=== PATIENT | female | born 1985 | race Caucasian/White ===

== ENCOUNTER 2018-06-09 14:37 | Emergency (ER) | payer OTHER ==
[~2018-06-09] VITALS: Ht 177.8 cm; Wt 96.9 kg
[2018-06-09 14:40] VITALS: Ht 177.8 cm; Wt 96.9 kg
--- NOTE | 2018-06-09 19:21 | ERD ---
ER Documentation Chief Complaint Chief Complaint LUQ abdominal pain radiates to lower back x 2 days HPI 29-year-old female presents for left flank pain times 1 day. She also states she has low back pain. She states that she is urinating some blood. She states that she is currently on her menstrual period. Denies nausea vomiting or diarrhea. Denies fever. She states that initially she had 9 out of 10 flank pain however now she has 6 out of 10 pain. No significant past medical history ROS All systems reviewed and are negative except as per history of present illness. Allergies Allergies: Coded Allergies: No Known Allergy (Unverified , 06/09/18) PMhx/Soc Medical and Surgical Hx: pt denies Medical Hx, pt denies Surgical Hx Hx Alcohol Use: No Hx Substance Use: Yes (MARIJUANA) Hx Tobacco Use: No Smoking Status: Never smoker Physical Exam Vitals Vital Signs Date Temp Pulse Resp B/P (MAP) Pulse Ox O2 O2 Flow FiO2 Time Delivery Rate 06/09/18 98.6 68 22 146/74 99 Room Air 19:29 (98) 06/09/18 98.9 104 18 196/92 99 14:40 (126) Physical Exam Const: No acute distress Resp: Clear to auscultation bilaterally Cardio: Regular rate and rhythm, no murmurs Abd: Soft, non distended. Normal bowel sounds, nontender to palpation, no McBurney's point tenderness, no Machado sign, no rebound or guarding noted Skin: No petechiae or rashes Back: There is left flank tenderness to palpation noted to be mild, bilateral paravertebral muscle tenderness to palpation of the lumbar spine Ext: No cyanosis, or edema Neur: Awake and alert Psych: Normal Mood and Affect Result Diagram: 06/09/18 1710 06/09/18 1710 Results 24 hrs Laboratory Tests Test 06/09/18 16:45 06/09/18 17:10 Urine Color RED Urine Clarity TURBID Urine pH 5.0 Urine Specific [place] 1.020 Urine Ketones NEGATIVE mg/dL Urine Nitrite POSITIVE mg/dL Urine Bilirubin NEGATIVE mg/dL Urine Urobilinogen 0.2 E.U./dL mg/dL Urine Leukocyte Esterase 1+ Hugo/ul Urine Microscopic RBC >200 /HPF Urine Microscopic WBC 10-25 /HPF Urine Squamous Epithelial Cells RARE /HPF Urine Bacteria RARE /HPF Urine Hemoglobin 3+ mg/dL Urine Glucose 2+ mg/dL Urine Total Protein 2+ mg/dl Urine Test POSITIVE White Blood Count 7.0 10^3/ul Red Blood Count 4.38 10^6/ul Hemoglobin 13.7 g/dl Hematocrit 41.2 % Mean Corpuscular Volume 94.1 fl Mean Corpuscular Hemoglobin 31.3 pg Mean Corpuscular Hemoglobin Concent 33.3 g/dl Red Cell Distribution Width 12.2 % Platelet Count 219 10^3/UL Mean Platelet Volume 10.6 fl Immature Granulocytes % 0.400 % Neutrophils % 69.4 % Lymphocytes % 23.4 % Monocytes % 5.4 % Eosinophils % 1.0 % Basophils % 0.4 % Nucleated Red Blood Cells % 0.0 /100WBC Immature Granulocytes # 0.030 10^3/ul Neutrophils # 4.9 10^3/ul Lymphocytes # 1.6 10^3/ul Monocytes # 0.4 10^3/ul Eosinophils # 0.1 10^3/ul Basophils # 0.0 10^3/ul Nucleated Red Blood Cells # 0.0 10^3/ul Sodium Level 138 mmol/L Potassium Level 3.7 mmol/L Chloride Level 102 mmol/L Carbon Dioxide Level 27 mmol/L Anion Gap 9 Blood Urea Nitrogen 15 mg/dl Creatinine 0.49 mg/dl Est Glomerular Filtrat Rate mL/min > 60 mL/min Glucose Level 99 mg/dl Calcium Level 9.5 mg/dl Total Bilirubin 0.8 mg/dl Direct Bilirubin 0.00 mg/dl Indirect Bilirubin 0.8 mg/dl Aspartate Amino Transf (AST/SGOT) 30 IU/L Alanine Aminotransferase (ALT/SGPT) 44 IU/L Alkaline Phosphatase 59 IU/L Total Protein 7.9 g/dl Albumin 4.5 g/dl Globulin 3.40 g/dl Albumin/Globulin Ratio 1.32 Lipase 143 U/L Beta HCG, Quantitative 551.7 mIU/ml Procedures/MDM Medical Decision Making: Differential diagnosis includes but not limited to acute gastritis, acute gastroenteritis, appendicitis, cholecystitis, pancreatitis. Patient appeared well on physical exam. Nontoxic appearing. ED course: Patient was given . Symptoms improved with treatment. Labs: CBC showed no anemia, no elevated WBC to suggest infection CMP showed no electrolyte abnormalities, there was normal kidney and liver function Lipase was normal Urine was positive UA was negative for infection Beta-hCG level was 551 Blood type is A+, no indication for RhoGam. Imaging: Renal ultrasound unremarkable OB ultrasound showed no intrauterine . Given normal blood work and benign abdominal examination there is low suspicion for acute abdomen Patient advised to return to the ER in 48 hours for a repeat beta-hCG On reexamination the patient stated that her left flank pain is improved. Patient advised to follow up with PCP in 1-2 days. Patient advised to return to ED for new or worsening symptoms. Patient stable on discharge from the ED. Disclaimer: Inadvertent spelling and grammatical errors are likely due to EHR/dictation software use and do not reflect on the overall quality of patient care. Also, please note that the electronic time recorded on this note does not necessarily reflect the actual time of the patient encounter. Departure Diagnosis: Primary Impression: Vaginal bleeding Condition: Fair Patient Instructions: Vaginal Bleed in Additional Instructions: Call your primary care doctor TOMORROW for an appointment during the next 1-2 days.See the doctor sooner or return here if your condition worsens before your appointment time. Return to ER in 48 hours for repeat beta HCG level ZURI CALDWELL DO Jun 09, 2018 19:21
[2018-06-09 19:29] VITALS: BP 146/74; PULSE 68; RESP 22
== END 2018-06-09 19:30 | disposition home or self-care (01) ==
LOC: FTE 14:37
DX: N93.9 Abnormal uterine and vaginal bleeding, unspecified (principal); Z33.1 Pregnant state, incidental
CPT/HCPCS: 36415; 76775; 76801; 80053; 81001; 83690; 84702; 84703; 85025; 86900; 86901